=== PATIENT | female | born 1980 | race Caucasian/White ===

== ENCOUNTER → 2017-04-12 09:52 | Outpatient (CLI) | payer BC, SELFPAY ==
[2017-04-12 11:54] LABS: Alanine Aminotransferase 38 U/L (12-78); Albumin Level 3.8 gm/dL (3.4-5.0); Alkaline Phosphatase 94 U/L (46-116); Anion Gap 13.9 mEq/L (5-15); Aspartate Amino Transferase 19 U/L (15-37); Bilirubin,Total 0.4 mg/dL (0.2-1.0); Blood Urea Nitrogen 15 mg/dL (7-18); Calcium 8.9 mg/dL (8.5-10.1); Carbon Dioxide 29 mmol/L (21.0-32.0); Chloride 103 mmol/L (98-107); Chol/HDL Ratio 3.2 (1-3.5); Cholesterol 145 mg/dL (140-200); Creatinine,Serum 0.62 mg/dL (0.55-1.02); Estimated Glomerular Filt Rate 110 ml/min (>60); GFR (African American) 133 ML/MIN (>60); Globulin 3.7 gm/dl (1.3-3.2); Glucose 100 mg/dL (74-106); HDL Cholesterol 46 mg/dL (29-89); LDL Cholesterol 64 mg/dL (0-130); Potassium 3.9 mmoL/L (3.5-5.1); Sodium 142 mmol/L (136-145); Total Protein,Serum 7.5 gm/dL (6.4-8.2); Triglycerides 173 mg/dL (30-200); VLDL Cholesterol 35 mg/dL (0-40)
[2017-04-13 08:26] LABS: HIV Screen 4th Generation wRfx Non Reactive (Non Reactive); Hep A Ab, IgM Negative (Negative); Hepatitis B Core Antibody IgM Negative (Negative); Hepatitis B Surface Antigen Negative (Negative)
[2017-04-13 12:15] LABS: Hepatitis C Antibody <0.1 s/co ratio (0.0-0.9); Rapid Plasma Reagin Ab Titer Non Reactive (NonRea<1:1)
== END ==
PROVIDERS: PCP Internal Medicine Adolescent Medicine; Visit Provider Nurse Practitioner Family
DX: Z00.00 Encounter for general adult medical examination without abnormal findings (principal); I10 Essential (primary) hypertension; Z20.2 Contact with and (suspected) exposure to infections with a predominantly sexual mode of transmission
CPT/HCPCS: 36415; 80053; 80061; 80074; 86592; 86703; G0432

== ENCOUNTER 2023-09-30 08:54 | Emergency (ER) | payer OTHER, SELFPAY ==
[2023-09-30 08:56] VITALS: BP 156/100; PULSE 61; RESP 19; TEMP 36.6; O2SAT 99; BMI 39.1
--- NOTE | 2023-09-30 09:02 | ED_ITS ---
Discharge Plan Disposition Patient Disposition: Home, Self-Care Chief Complaint: Fall Prescriptions Prescriptions: No Action spironolactone 50 mg tablet PO Patient Comments: TAKE 1 TABLET BY MOUTH ONCE DAILY bumetanide 2 mg tablet PO Patient Comments: TAKE 1 TABLET BY MOUTH ONCE DAILY metoprolol succinate 100 mg tablet extended release 24 hr PO BID Patient Comments: TAKE 1 TABLET BY MOUTH 2 TIMES A DAY DO NOT CRUSH OR CHEW Entresto 24-26 mg tablet PO .2 tabs bid Patient Comments: TAKE 1 TABLET BY MOUTH TWICE DAILY dapagliflozin propanediol [Farxiga] 10 mg tablet 10 mg PO DAILY Qty: 90 0RF dapagliflozin propanediol [Farxiga] 10 mg tablet 10 mg PO DAILY Qty: 90 0RF Referrals Follow up/Referrals: Kindra Persaud PA [Primary Care Provider] - See instructions Activity Restrictions/Add. Instructions Additional Instructions/Restrictions: You have been evaluated in the ED for your complaints. You may follow-up with your PCP in the next 3 to 5 days. Please return to ED for any new or worsening symptoms. 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 Clinical Impressions Clinical Impression: ICD (implantable cardioverter-defibrillator) in place Print Language Print Language: [place] Discharge ED Provider: Regis Ray Adult HPI General Chief complaint: Fall Stated complaint: ao 09/29, device check Time Seen by Provider: 09/30/23 08:59 History of Present Illness HPI narrative: 43-year-old female with past medical history significant for hypertension, cerebral palsy, CKD, CHF, has ICD in place, presents today for evaluation concerning fall that occurred this morning. Patient states that she fell from her bed onto her left side and feels as if her ICD has moved out of place. She denies having any pain or symptoms at this time. Denies any chest pain, maria guadalupe rtness of breath, nausea or vomiting, headaches, neck pain, back pain, abdominal pain or any other associated symptoms. ICD is managed in [facility] Related Data Gatzke Medications ?Medication ?Instructions ?Recorded ?Confirmed bumetanide 2 mg tablet mg PO 09/10/23 09/10/23 metoprolol succinate 100 mg mg PO BID 09/10/23 09/10/23 tablet,extended release 24 hr sacubitril 24 mg-valsartan 26 mg tab PO .2 tabs bid 09/10/23 09/10/23 tablet (Entresto) spironolactone 50 mg tablet mg PO 09/10/23 09/10/23 Previous Rx's ?Medication ?Instructions ?Recorded Farxiga 10 mg tablet 10 mg PO DAILY #90 tabs 09/10/23 (dapagliflozin propanediol) dapagliflozin propanediol 10 mg 10 mg PO DAILY #90 tabs 09/10/23 tablet (Farxiga) Allergies Allergy/AdvReac Type Severity Reaction Status Date / Time No Known Allergies Allergy Verified 09/10/23 14:03 [facility] Disclaimer: The information contained in this section may have been updated after the patient was seen, as this information can be updated by other users. Medical History (Updated 09/30/23 @ 11:17 by Regis Ray DO) CHF (congestive heart failure) Cerebral palsy Hypertension ICD (implantable cardioverter-defibrillator) in place Surgical History (Updated 09/10/23 @ 14:18 by Ashley Graham MA) H/O bone graft Hx of cholecystectomy H/O: Family History (Updated 09/10/23 @ 14:12 by Ashley Graham MA) Other Cancer Diabetes Heart attack Hypertension Stroke Social History (Updated 09/10/23 @ 14:11 by Ashley Graham MA) Smoking Status: Current some day smoker tobacco type: cigarettes packs per day: 1 alcohol intake: never substance use type: denies use current occupational status: unemployed and other Travel in the last 8 weeks: None household members: family housing: house marital status: education level: college ROS Obtained: Yes All systems reviewed & no additional complaints except as documented Physical Exam General General appearance: alert and in no apparent distress Head Head exam: atraumatic and normocephalic Eye Eye exam: Present normal appearance, PERRL and EOMI ENT ENT exam: Present normal oropharynx and mucous membranes moist Neck Neck exam: Present full ROM; Absent meningismus Chest Chest inspection: Present other (ICD is palpated in the left chest. Surgical incision scar is well-appearing. No external signs of trauma.) Respiratory Respiratory exam: Absent respiratory distress, wheezes, stridor or accessory muscle use Cardiovascular Cardiovascular exam: Present normal rhythm Abdominal Exam Abdominal exam: Present soft; Absent distention, tenderness, guarding, rebound or rigidity Neurological Exam Neurological exam: Present alert, oriented X3 and CN II-XII intact; Absent motor sensory deficit Psychiatric Psychiatric exam: Present normal affect and normal mood Skin Skin exam: Present warm and dry Medical Decision Making Medical Records Medical records reviewed: Yes I reviewed the patient's medical records. Stevan Inquiry Pt receiving controlled substance: No Stevan was queried for this patient: No Vital Signs: 09/30/23 08:56 Temperature 97.9 F Temperature Source Oral Pulse Rate [Left Radial] 61 Respiratory Rate 19 Blood Pressure [Right Arm] 156/100 H Blood Pressure Mean [Right Arm] 118 02 Sat by Pulse Oximetry 99 Oxygen Delivery Method Room Air Orders (Tests/Meds): ORDERS Category Date Time Status CXR --portable [XR chest portable] Stat Exams 09/30/23 09:03 Completed Medical Decision Narrative: 43-year-old female with past medical history significant for hypertension, cerebral palsy, CKD, CHF, has ICD in place, presents today for evaluation concerning fall that occurred this morning. Patient states that she fell from h er bed onto her left side and feels as if her ICD has moved out of place. She denies having any pain or symptoms at this time. On assessment the patient was hemodynamically stable and in no acute distress. Afebrile. Chest clear to auscultation bilaterally abdomen soft nondistended and nontender to palpation. ICD is palpable on the left chest. There is an incisional scar that is well-appearing. No external signs of trauma. Differential diagnoses include but limited to ICD displacement, among others. Chest x-ray was ordered and showed no acute findings. ICD was noted to be in satisfactory position. On reassessment she remained hemodynamically stable and in no acute distress. Discussed ED workup and results. Did attempt to interrogate pacemaker to ensure that it was functioning properly however we do not have capabilities here. 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 Sure decision-making discussion was had and she stated that she would make appropriate follow-up. I provided her with strict return ED precautions. She verbalized understanding and agreement. Subsequently discharged. Critical Care Critical Care Time Critical Care Time: No
--- NOTE | 2023-09-30 09:03 | XR_ITS ---
PROCEDURE INFORMATION: Exam: XR Chest Exam date and time: 09/30/2023 9:06 AM Age: 43 years old Clinical indication: Injury or trauma; Fall; Blunt trauma (contusions or hematomas); Prior surgery; Surgery date: 1-6 months; Surgery type: Icd revision done 1 month ago, originally placed icd 1 year ago; Additional info: Feels like icd is out of place after falling out of bed this morning TECHNIQUE: Imaging protocol: Radiologic exam of the chest. Views: 1 view. COMPARISON: No relevant prior studies available. FINDINGS: Tubes, catheters and devices: Implanted cardiac device in satisfactory position. Lungs: Unremarkable. No consolidation. Pleural spaces: Unremarkable. No pleural effusion. No pneumothorax. Heart/Mediastinum: Cardiomegaly. Bones/joints: Unremarkable. IMPRESSION: No acute findings.
--- OUTSIDE RECORDS SUMMARY | 2023-09-30 09:04 | XMS_ITS | Continuity of Care Document ---
Author Organization [facility] Address [address] [place] [address]- Care Team Providers Care Assistant Sales Manager Name Role Phone KELLIE, UNKNOWN Primary Care Physician Unavailab le Encounter [facility] [id number] Date(s): 08/02/23 - 08/24/23 [facility] [address] [place] [address]- [place] Discharge Disposition: OP Self Care or Home Attending Physician: NEGRITA BOWERS MD-CAR Admitting Physician: NEGRITA BOWERS MD-CAR Referring Physician: DEBO HOPKINS Allergies, Adverse Reactions, Alerts No Known Allergies Assessment and Plan Future Scheduled Tests Radiology* CR Chest 2 Vws 06/12/23 Medications bumetanide 2 mg oral tablet 2 mg 1 Tab, Oral, Tab, Daily, # 90 Tab, 0 Refill(s) Start Date: 08/24/23 Status: Ordered Entresto 49 mg-51 mg oral tablet 2 Tab, Oral, Tab, BID, # 60 Tab, 0 Refill(s) Start Date: 10/03/22 Status: Ordered Farxiga 10 mg oral tablet 10 mg 1 Tab, Oral, Daily, 0 Refill(s) Start Date: 10/03/22 Status: Ordered Metoprolol Succinate ER 50 mg oral tablet, extended release 50 mg 1 Tab, Oral, XL Tab, BID, Tab, 0 Refill(s) Start Date: 10/03/22 Status: Ordered spironolactone 50 mg oral tablet 50 mg 1 Tab, Oral, Tab, Daily, # 30 Tab, 0 Refill(s) Start Date: 10/03/22 Status: Ordered Mental Status 08/24/23 Level of Consciousness Alert, Awake Orientation Oriented x 4 Affect/Behavior Appropriate, Calm, Cooperative Facial Symmetry Symmetric Problem List Condition Confirmation Course Effective Dates Status H ealth Status Informant Cardiomyopathy Confirmed Active Cerebral palsy 1 Confirmed Active Chronic bronchitis Confirmed Active pat ient CHF (congestive heart failure) Confirmed Active Diabetes Confirmed Active HLD (hyperlipidemia) Confirmed Active HTN (hypertension) Confirmed Active Seizure 2 Confirmed Active patient 1L sided weakness 2childhood only, not treated Procedures Procedure Date Related Diagnosis Body Site Status CL Eval ICD Gen at Implant SN 1 08/24/23 Completed CL ICD Lead Removal SN 2 08/24/23 Completed CL Eval ICD Gen at Implant SN 3 10/06/22 Completed CL ICD Implant Dual SN 4 10/06/22 Completed Right foot, ORIF 2017 Complete d Cholecystectomy. laparoscopic 2011 Completed Abdmoninal mass, endometriosis 2010 Completed C Section 2005 Completed Tubal ligation 2005 Completed C Section 2004 Completed C Section 2002 Completed Left hip, bone removed 5 Completed 1auto-populated from documented surgical case 2auto-populated from documented surgical case 3auto-populated from documented surgical case 4auto-populated from documented surgical case 5Unknown date Results Laboratory List Name Date BMP Basic Metabolic Panel 08/24/23 CBC w/ Auto Diff 08/24/23 PT/INR Prothrombin Time 08/24/23 PTT 08/24/23 .Automated Differential 08/24/23 Most recent to oldest [Reference Range]: 1 eGFR [>=60 mL/min/1.73m2] 112 mL/min/1.7 3m2 1 (08/24/23 10:44 AM) Sodium Level [136-145 mmol/L] 138 mmol/L (08/24/23 10:44 AM) Potassium Level [3.5-5.1 mmol/L] 3.6 mmo l/L (08/24/23 10:44 AM) Chloride Level [98-110 mmol/L] 104 mmol/ L (08/24/23 10:44 AM) Carbon Dioxide Level [21.0-31.0 mmol/L] 26.0 mmol/L (08/24/23 10:44 AM) Anion Gap [2.0-11.0] 8.0 (08/24/23 10:44 AM) WBC [4.0-10.8 x10(3)/uL] 7.0 x10(3)/uL (08/24/23 10:44 AM) RBC [3.77-5.16 x10(6)/uL] 4.88 x10(6)/uL (08/24/23 10:44 AM) Hct [35.0-45.0 %] 42.9 % (08/24/23 10:44 AM) Hgb [12.0-16.0 Gram/dL] 14.7 Gram/dL (08/24/23 10:44 AM) Platelet Count [140-420 x10(3)/uL] 287 x 10(3)/uL (08/24/23 10:44 AM) MCH [25.6-32.2 pg] 30.1 pg (08/24/23 10:44 AM) MCHC [32.3-36.5 Gram/dL] 34.3 Gram/dL (08/24/23 10:44 AM) MCV [79.4-94.8 fL] 87.9 fL (08/24/23 10:44 AM) Bun/Creatinine [6.0-22.0] 11.9 (08/24/23 10:44 AM) Calcium Level [8.6-10.2 mg/dL] 9.1 mg/dL (08/24/23 10:44 AM) Glucose Level [74-109 mg/dL] 104 mg/dL (08/24/23 10:44 AM) Blood Urea Nitrogen [7-25 mg/dL] 8 mg/dL (08/24/23 10:44 AM) INR 1.00 2 *NA* (08/24/23 10:44 AM) Slide Review None *NA* (08/24/23 10:44 AM) Eos % [0.0-7.0 %] 4.0 % (08/24/23 10:44 AM) Reynolds # [0.0-1.0 x10(3)/uL] 0.5 x10(3)/uL (08/24/23 10:44 AM) Eos # [0.0-0.7 x10(3)/uL] 0.3 x10(3)/uL (08/24/23 10:44 AM) Reynolds % [2.0-12.0 %] 7.1 % (08/24/23 10:44 AM) Baso % [0.0-3.0 %] 1.0 % (08/24/23 10:44 AM) PTT [24.6-34.4 Second(s)] 35.3 Second(s) 3 *HI* (08/24/23 10:44 AM) Baso # [0.0-0.3 x10(3)/uL] 0.1 x10(3)/uL (08/24/23 10:44 AM) RDW [11.0-15.5 %] 14.1 % (08/24/23 10:44 AM) Neut % [34.0-75.0 %] 63.1 % (08/24/23 10:44 AM) PT [9.7-13.1 Second(s)] 11.5 Second(s) (08/24/23 10:44 AM) Neut # [1.5-7.1 x10(3)/uL] 4.4 x10(3)/uL (08/24/23 10:44 AM) Lymph % [17.0-53.0 %] 24.8 % (08/24/23 10:44 AM) Lymph # [1.0-3.5 x10(3)/uL] 1.7 x10(3)/u L (08/24/23 10:44 AM) MPV [8.7-12.0 fL] 9.1 fL (08/24/23 10:44 AM) Creatinine Level [0.60-1.20 mg/dL] 0.67 mg/dL (08/24/23 10:44 AM) Lot Number [id number] (08/24/23 2:54 PM) 1Interpretive Data: eGFR calculation performed using the CKD-EPI 2020 equation (race variable excluded) 2Interpretive Data: Recommended INR range for Oral Anticoagulant Therapy : STANDARD: 2.0 - 3.0 HIGH: 3.0 - 4.5 NOTE: Recommended range will be different for patients with mechanical implants. 3Interpretive Data: Heparin therapeutic range is 55-95 sec. When the PTT is> 95 sec, if on heparin, refer to heparin protocol. If not on heparin, recommend appropriate workup. Vital Signs Most recent to oldest [Reference Range]: 1 2 3 4 Pope Motor Response Obey commands (08/24/23 3:45 PM) Obey commands (08/24/23 1:31 PM) Long Verbal Response Oriented (08/24/23 3:45 PM) Oriented (08/24/23 1:31 PM) Long Eye Opening Response Spontaneous (08/24/23 3:45 PM) Spontaneous (08/24/23 1:31 PM) Long Coma Score 15 (08/24/23 3:45 PM) 15 (08/24/23 1:31 PM) Temperature Source Tympanic (08/24/23 1:31 PM) Temperature, Fahrenheit [96.8-99.7 Deg F] 98.3 Deg F (08/24/23 1:31 PM) Clinical Temperature, C 36.8 Deg C (08/24/23 1:31 PM) Heart Rate, Apical [60-100 bpm] 65 bpm (08/24/23 1:31 PM) Heart Rate Monitored [60-100 bpm] 69 bpm (08/24/23 4:45 PM) 64 bpm (08/24/23 4:30 PM) 60 bpm (08/24/23 4:15 PM) Respiratory Rate [14-20 Breaths/Min] 15 Breaths/Min (08/24/23 4:45 PM) 16 Breaths/Min (08/24/23 4:30 PM) 16 Breaths/Min (08/24/23 4:15 PM) Blood Pressure Location Arm, right upper (08/24/23 1:31 PM) Blood Pressure Source Non-Invasive BP Device (08/24/23 1: PM) Blood Pressure Position Supine (08/24/23 1:31 PM) Blood Pressure [90-140/60-90 mmHg] 175/104mmHg *HI* (08/24/23 4:45 PM) 175/104mmHg *HI* (08/24/23 4:30 PM) 179/105mmHg *HI* (08/24/23 4:15 PM) Mean Arterial Pressure (MAP)-BMDI 124 (08/24/23 4:45 PM) 124 (08/24/23 4:30 PM) 126 (08/24/23 4:15 PM) Oxygen Saturation [94-100 %] 100 % (08/24/23 5:00 PM) 100 % (08/24/23 4:45 PM) 99 % (08/24/23 4:30 PM) Oxygen Therapy Mode Room air (08/24/23 4:45 PM) Room air (08/24/23 3:45 PM) Room air (08/24/23 1:31 PM) Room air (08/24/23 1:31 PM) Height Source Stated (08/24/23 1:31 PM) Stated (08/24/23 1:12 PM) Height Entry Format [place] (08/24/23 1:31 PM) [place] (08/24/23 1:12 PM) Height/Length, [place] (ft) 5 ft (08/24/23 1:31 PM) 5 ft (08/24/23 1:12 PM) Height/Length [place]IZ[place] 6 Inch (08/24/23 1:31 PM) 6 Inch (08/24/23 1:12 PM) CLINICALHEIGHT 167.64 cm (08/24/23 1:31 PM) 167.64 cm (08/24/23 1:12 PM) Weight Source Standing scale (08/24/23 1:31 PM) Standing scale (08/24/23 1:12 PM) Weight Entry Format Pounds (08/24/23 1:31 PM) Pounds (08/24/23 1:12 PM) Weight [place] lb 267 lb (08/24/23 1:31 PM) 267 lb (08/24/23 1:12 PM) Weight [place] oz 0 oz (08/24/23 1:31 PM) 0 oz (08/24/23 1:12 PM) CLINICALWEIGHT 121.36 kg (08/24/23 1:31 PM) 121.36 kg (08/24/23 1:12 PM) Body Surface Area (BSA) 2.26 m2 (08/24/23 1:31 PM) 2.26 m2 (08/24/23 1:12 PM) Body Mass Index [19-24 kg/m2] 43.2 kg/m2 *>HHI* (08/24/23 1:31 PM) 43.2 kg/m2 *>HHI* (08/24/23 1:12 PM) Koppel Body Weight 59 kg (08/24/23 1:31 PM) 59 kg (08/24/23 1:12 PM) Social History Social History Type Response Smoking Status Former smoker; Month Tobacco Last Used quit 08/2022; entered on: 10/06/22 Sex Female Hospital Discharge Instructions Patient Education 08/24/2023 16:27:18 Cardioverter Defibrillator Implantation, Care After Cardioverter Defibrillator Implantation (ICD), Incision Care After The following information offers guidance on how to care for yourself after your procedure. Your health care provider may also give you more specific instructions. If you have problems or questions, contact your health care provider. What can I expect after the procedure? After the procedure, it is common to have: ??? Some pain. Pain may last a few days. ??? A slight bump over the skin where the device was placed. Sometimes, it is possible to feel the device under the skin. This is normal. During the months and years after your procedure, your health care provider will check the device, the wires (leads), and the battery every few months. The generator is monitored over time and will be replaced when the battery is depleted. Follow these instructions at home: Medicines ??? Take jaom-omk-kibqtpm and prescription medicines only as told by your health care provider. Bathing ??? Do not take baths, swim, or use a hot tubfor the next 4-6 weeks ??? You may shower after you are seen in [address] Bowers's Nurse Practioner. You may only be allowed to take sponge baths. Cover your incision with a watertight covering if you take a sponge bath. Incision care ??? Follow instructions from your health care provider about how to take care of your incision. Make sure you: ??? Wash your hands with soap and water for at least 20 seconds before and after you change your bandage (dressing). If soap and water are not available, use hand retail service lead merchandiser. ??? Do Not remove or change your dressing. The nurse practioner will remove your dressing. ??? Leave stitches (sutures), skin glue, adhesive strips, or meggan in place. These skin closures may need to stay in place for 2 weeks or longer. If adhesive strip edges start to loosen and curl up, you may trim the loose edges. Do not remove adhesive strips completely unless your health care provider tells you to do that. ??? Check your incision area every day for signs of infection. Check for: ??? Redness, swelling, or more pain. ??? Fluid or blood. ? ? Warmth or fever > 100.0 F ??? Pus or a bad smell. ??? Do not use lotions or ointments near the incision area unless told by your health care provider. ??? Do not wear tight clothes or clothes that could rub on your incision. Activity ??? Do not lift anything that is heavier than 10 lb (4.5 kg), or the limit that you are told, untilmethodist hospital health care provider says that it is safe. ??? Return to your normal activities as told by your health care provider. Follow instructions frommethodist hospital health care provider about sports, exercise, work, and sexual activity restrictions after yourprocedure. ??? Avoid sitting for a long time without moving. Get up to take short walks every 1???2 hours. This is important to improve blood flow and breathing. Ask for help if you feel weak or unsteady. ??? For at least 6 weeks: ??? You should use your shoulder on the side of the defibrillator in daily tasks that do not require a lot of motion. ??? Avoid sudden jerking, pulling, or chopping movements that pull your upper arm far away from your body. ??? Do not drive or operate machineryfor the next 48-72 hours. Electric and magnetic estrada ??? Tell all health care providers, including your dentist, that you have a defibrillator. Some medical devices and imaging methods such as MRI may affect your device. ??? If you must pass through a metal detector, quickly walk through it. Do not stop under the detector. Do not stand near it. ??? Avoid places or objects that have a strong electric or magnetic field, including: ??? Airport security rousseau. At the airport, let officials know that you have a defibrillator. Your defibrillator ID card will let you be checked in a way that is safe for you and will not damage yourdefibrillator. Do not let a security person wave a magnetic wand near your defibrillator. That can make it stop working. ??? Power plants. ??? Large electrical generators. ??? Anti-theft systems or electronic article surveillance (EAS). ??? Radiofrequency transmission towers, such as mobile phone and radio towers. ??? Some household devices and appliances may produce electromagnetic waves that affect your defibrillator. If you are not sure if something is safe to use, ask your health care provider. ??? When using your mobile phone, hold it to the ear that is on the opposite side from the defibrillator. Do not leave your mobile phone in a pocket over the defibrillator. ??? Many devices contain magnets. Examples include headphones and electronic cigarettes. Do not putthem in a pocket near your device. If they are wearable, wear them as far away from the device as possible. ??? Some devices are safe to use if they are held at least 12 inches (30 cm) away from your defibrillator. These include power tools, chain saws, lawn mowers, and speakers. ??? You may safely use electric blankets, heating pads, computers, and microwave ovens. ??? Do not use amateur or ham radio equipment, electric (arc) welding torches, magnetic mattresses or chairs, and body fat measuring scales. General instructions ??? Always keep your defibrillator ID card with you. The card should list the implant date, device model, and hospital nurse liaison. Consider wearing a medical alert bracelet or necklace. ??? Have your defibrillator checked as often as told by your health care provider. Most defibrillators last for 5???7 years. ??? Do not use any products that contain nicotine or tobacco. These products include cigarettes, chewing tobacco, and vaping devices, such as e-cigarettes. If you need help quitting, ask your health care provider. ??? Discuss specific device restrictions with your device hospital nurse liaison or health care provider. ??? Get screened for depression and anxiety, and seek treatment if needed. ??? Keep all follow-up visits. This is important. Contact a health care provider if: ??? You feel one shock in your chest. ??? You gain weight suddenly. ??? You have a fever. ??? You have swelling in your arm on the same side of your body as the device or have swelling in your legs or feet. ??? It feels like your heart is fluttering or skipping beats (heart palpitations). ??? You have any of these signs of infection around your incision: ??? Redness, swelling, or more pain. ??? Fluid or blood. ??? Warmth. ??? Pus or a bad smell. ??? You are feeling depressed, scared, anxious, or sad. Get help right away if: ??? You have chest pain. ??? You feel more than one shock. ??? You have problems breathing or have shortness of breath. ??? You have dizziness or fainting. ??? Your incision starts to open up. These symptoms may represent a serious problem that is an emergency. Do not wait to see if the symptoms will go away. Get medical help right away. Call your local emergency services (911 in the [place] Do not drive yourself to the hospital. Summary ??? It is important to follow your activity restrictions for at least 6 weeks following your deviceimplantation. Do not lift your upper arm above your shoulder. ??? Always keep your defibrillator ID card with you. The card should list the implant date, device model, and hospital nurse liaison. Consider wearing a medical alert bracelet or necklace. ??? Follow the device distance restrictions for electric and magnetic estrada. ??? Keep all follow-up visits with your health care provider for monitoring of your defibrillator. ??? Contact your health care provider if you have signs of an infection such as a fever or redness,swelling, or more pain around your incision. Get help right away if you have chest pain, receive more than one shock, or faint. This information is not intended to replace advice given to you by your health care provider. Make sure you discuss any questions you have with your health care provider. Document Revised: 08/11/2020 Document Reviewed: 08/11/2020 [employer] Patient Education ?? 2022 [employer]. Follow Up Care 08/02/2023 07:53:25 With:NEGRITA BOWERS MD-CAR Address: [address] [place] [phone] When:2 to 3 days Comments:Call on Sunday,??for follow up appointment with Dr. Bowers's??Nurse Practitioner for a 1 week incision check. With:NEGRITA BOWERS MD-CAR Address: [address] [place] [phone] When:2 to 4 weeks Comments:Call for follow up appointment on Sunday to see when ??Robinson??would like to see you Cardiology * Event Display: Cardiac Procedure EKG study * Event Display: EKG Preliminary Patient Care team information Care Team Personnel Name: PIETROElliott, UNKNOWN Position: [place] Referring Provider - No Access Member Role: Primary Care Physician Care Team Related Persons Name: PHIL DHILLON
--- OUTSIDE RECORDS SUMMARY | 2023-09-30 09:04 | XMS_ITS | Continuity of Care Document ---
Author Organization [facility] Address [address] [place] [address]- Care Team Providers Care Boat Hand Name Role Phone PHY, UNKNOWN Primary Care Physician Unavailab le Encounter [facility] Date(s): 09/27/22 - 10/03/22 [facility] [address] [place] [address]- [place] Discharge Disposition: OP Self Care or Home Allergies, Adverse Reactions, Alerts No Known Allergies Assessment and Plan Future Appointments Appointment Date:10/06/2022 07:00:00 AM Scheduled Provider: Location:[facility] Engine Maintenance Mechanic SN Appointment Type:[facility] Surgery Medications Entresto 49 mg-51 mg oral tablet 1 Tab, Oral, Tab, Daily, # 60 Tab, 0 Refill(s) Start Date: 10/03/22 Status: Ordered Farxiga 10 mg oral tablet See Instructions, Tab mg Oral Daily, 0 Refill(s) Start Date: 10/03/22 Status: Ordered Metoprolol Succinate ER 50 mg oral tablet, extended release 50 mg, Oral, XL Tab, BID, Tab, 0 Refill(s) Start Date: 10/03/22 Status: Ordered spironolactone 50 mg oral tablet 50 mg 1 Tab, Oral, Tab, Daily, # 30 Tab, 0 Refill(s) Start Date: 10/03/22 Status: Ordered Problem List Condition Confirmation Course Effective Dates Status H ealth Status Informant Cardiomyopathy Confirmed Active Cerebral palsy Confirmed Active CHF (congestive heart failure) Confirmed Active HTN (hypertension) Confirmed Active Procedures Procedure Date Related Diagnosis Body Site Status Right foot, ORIF 2018 Complete d Cholecystectomy. laparoscopic 2011 Completed Abdmoninal mass, endometriosis 2010 Completed C Section 2006 Completed C Section 2005 Completed C Section 2003 Completed Left hip, bone removed 1 Completed 1Unknown date Social History Social History Type Response Smoking Status Former smoker entered on: 10/03/22 Sex Female Patient Care team information Care Team Personnel Name: PHY, UNKNOWN Position: [place] Referring Provider - No Access Member Role: Primary Care Physician
--- OUTSIDE RECORDS SUMMARY | 2023-09-30 09:04 | XMS_ITS | Continuity of Care Document ---
Author Organization [facility] Address [address] [place] [address]- Care Team Providers Care Provisioning Analyst Name Role Phone PHY, UNKNOWN Primary Care Physician Unavailab le Encounter [facility] [id number] Date(s): 10/20/22 - 10/20/22 [facility] [address] [place] [address]- [place] Discharge Disposition: OP Self Care or Home Allergies, Adverse Reactions, Alerts No Known Allergies Medications Entresto 49 mg-51 mg oral tablet 1 Tab, Oral, Tab, BID, # 60 Tab, [...] ient CHF (congestive heart failure) Confirmed Active HTN (hypertension) Confirmed Active Seizure 2 Confirmed Active patient 1L sided weakness 2childhood only, not treated Procedures Procedure Date Related Diagnosis Body Site Status CL Eval ICD Gen at Implant SN 1 10/06/22 Completed CL ICD Implant Dual SN 2 10/06/22 Completed Right foot, ORIF 2017 Complete d Cholecystectomy. laparoscopic 2011 Completed Abdmoninal mass, endometriosis 2010 Completed C Section 2006 Completed Tubal ligation 2006 Completed C Section 2005 Completed C Section 2002 Completed Left hip, bone removed 3 Completed 1auto-populated from documented surgical case 2auto-populated from documented surgical case 3Unknown date Social History Social History Type Response Smoking Status Former smoker; Month Tobacco Last Used quit 08/2022; entered on: 10/06/22 Sex Female Patient Care team information Care Team Personnel Name: KELLIE, UNKNOWN Position: [place] Referring Provider - No Access Member Role: Primary Care Physician Care Team Related Persons Name: PHIL DHILLON
--- OUTSIDE RECORDS SUMMARY | 2023-09-30 09:04 | XMS_ITS | Continuity of Care Document ---
Author Organization [facility] Address [address] [place] [address]- Care Team Providers Care Pipelines Supervisor Name Role Phone NO, FAMILY (REF) Primary Care Physician Unavaila ble Encounter [facility] [id number] Date(s): 09/27/22 - 10/06/22 [facility] [address] [place] [address]- [place] Discharge Disposition: OP Self Care or Home Attending Physician: LEESA HORTA MD-CAR Admitting Physician: LEESA HORTA MD-CAR Referring Physician: LEESA HORTA MD-CAR Allergies, Adverse Reactions, Alerts No Known Allergies Medications Entresto 49 mg-51 mg oral tablet 1 Tab, Oral, Tab, BID, # 60 Tab, 0 Refill(s) Start Date: 10/03/22 Status: Ordered Farxiga 10 mg oral tablet 10 mg 1 Tab, Oral, Daily, 0 Refill(s) Start Date: 10/03/22 Status: Ordered hydrALAZINE 5 mg, IV Push, Inj, Start 10/06/22 7:35:00 AM EDT, 10/06/22 7:20:00 EDT Start Date: 10/06/22 Stop Date: 10/06/22 Status: Completed labetalol 10 mg, IV Push, Inj, 1-Time, Routine, Start 10/06/22 9:00:00 AM EDT, Stop 10/06/22 8:08:40 AM EDT, 10/06/22 8:06:00 EDT Notes: (Refer to facility policy for care-area specific administration guidelines.) *High Alert Med* Start Date: 10/06/22 Stop Date: 10/06/22 Status: Completed metoprolol extended release 50 mg, Oral, XL Tab, 1-Time, NOW, Start 10/06/22 9:29:00 AM EDT, Stop 10/06/22 11:13:35 AM EDT, 10/06/22 9:29:00 EDT Notes: Do not crush or chew. Sustained release action. Start Date: 10/06/22 Stop Date: 10/06/22 Status: Completed Metoprolol Succinate ER 50 mg oral tablet, extended release 50 mg 1 Tab, Oral, XL Tab, BID, Tab, 0 Refill(s) Start Date: 10/03/22 Status: Ordered spironolactone 50 mg oral tablet 50 mg 1 Tab, Oral, Tab, Daily, # 30 Tab, 0 Refill(s) Start Date: 10/03/22 Status: Ordered Mental Status 10/06/22 Level of Consciousness Alert, Awake Orientation Oriented x 4 Pupils Equal, Round, Reactive to Light Y es Affect/Behavior Appropriate, Calm, Cooperative Facial Symmetry Symmetric Tongue Protrusion Midline Problem List Condition Confirmation Course Effective Dates [...] Completed Tubal ligation 2006 Completed C Section 2004 Completed C Section 2002 Completed Left hip, bone removed 3 Completed 1auto-populated from documented surgical case 2auto-populated from documented surgical case 3Unknown date Results Laboratory List Name Date BMP Basic Metabolic Panel 10/06/22 CBC w/ Auto Diff 10/06/22 PT/INR Prothrombin Time 10/06/22 PTT 10/06/22 .Automated Differential 10/06/22 Most recent to oldest [Reference Range]: 1 eGFR [>=60 mL/min/1.73m2] 101 mL/min/1.7 3m2 1 (10/06/22 5:57 AM) Sodium Level [136-145 mmol/L] 137 mmol/L (10/06/22 5:57 AM) Potassium Level [3.5-5.1 mmol/L] 3.8 mmo l/L (10/06/22 5:57 AM) Chloride Level [98-110 mmol/L] 105 mmol/ L (10/06/22 5:57 AM) Carbon Dioxide Level [21.0-31.0 mmol/L] 25.0 mmol/L (10/06/22 5:57 AM) Anion Gap [2.0-11.0] 7.0 (10/06/22 5:57 AM) WBC [4.0-10.8 x10(3)/uL] 8.8 x10(3)/uL (10/06/22 5:57 AM) RBC [3.77-5.16 x10(6)/uL] 5.22 x10(6)/uL *HI* (10/06/22 5:57 AM) Hct [35.0-45.0 %] 45.6 % *HI* (10/06/22 5:57 AM) Hgb [12.0-16.0 Gram/dL] 15.6 Gram/dL (10/06/22 5:57 AM) Platelet Count [140-420 x10(3)/uL] 320 x 10(3)/uL (10/06/22 5:57 AM) MCH [25.6-32.2 pg] 29.9 pg (10/06/22 5:57 AM) MCHC [32.3-36.5 Gram/dL] 34.2 Gram/dL (10/06/22 5:57 AM) MCV [79.4-94.8 fL] 87.4 fL (10/06/22 5:57 AM) Bun/Creatinine [6.0-22.0] 17.1 (10/06/22 5:57 AM) Calcium Level [8.6-10.2 mg/dL] 9.3 mg/dL (10/06/22 5:57 AM) Glucose Level [74-109 mg/dL] 116 mg/dL *HI* (10/06/22 5:57 AM) Blood Urea Nitrogen [7-25 mg/dL] 13 mg/d L (10/06/22 5:57 AM) INR 0.98 *NA* (10/06/22 5:57 AM) Slide Review None *NA* (10/06/22 5:57 AM) Eos % [0.0-7.0 %] 3.3 % (10/06/22 5:57 AM) [place] # [0.0-1.0 x10(3)/uL] 0.6 x10(3)/uL (10/06/22 5:57 AM) Eos # [0.0-0.7 x10(3)/uL] 0.3 x10(3)/uL (10/06/22 5:57 AM) [place] % [2.0-12.0 %] 6.7 % (10/06/22 5:57 AM) Baso % [0.0-3.0 %] 1.0 % (10/06/22 5:57 AM) PTT [24.6-34.4 Second(s)] 35.0 Second(s) *HI* (10/06/22 5:57 AM) Baso # [0.0-0.3 x10(3)/uL] 0.1 x10(3)/uL (10/06/22 5:57 AM) RDW [11.0-15.5 %] 14.6 % (10/06/22 5:57 AM) Neut % [34.0-75.0 %] 64.1 % (10/06/22 5:57 AM) PT [9.7-13.1 Second(s)] 11.4 Second(s) (10/06/22 5:57 AM) Neut # [1.5-7.1 x10(3)/uL] 5.7 x10(3)/uL (10/06/22 5:57 AM) Lymph % [17.0-53.0 %] 24.9 % (10/06/22 5:57 AM) Lymph # [1.0-3.5 x10(3)/uL] 2.2 x10(3)/u L (10/06/22 5:57 AM) MPV [8.7-12.0 fL] 9.1 fL (10/06/22 5:57 AM) Creatinine Level [0.60-1.20 mg/dL] 0.76 mg/dL (10/06/22 5:57 AM) 1Interpretive Data: eGFR calculation performed using the CKD-EPI 2020 equation (race variable excluded) Vital Signs Most recent to oldest [Reference Range]: 1 2 3 Long Motor Response Obey commands (10/06/22 10:15 AM) Obey commands (10/06/22 6:04 AM) Weed Verbal Response Oriented (10/06/22 10:15 AM) Oriented (10/06/22 6:04 AM) Long Eye Opening Response Spontaneous (10/06/22 10:15 AM) Spontaneous (10/06/22 6:04 AM) Weed Coma Score 15 (10/06/22 10:15 AM) 15 (10/06/22 6:04 AM) Temperature Source Tympanic (10/06/22 10:20 AM) Temporal artery scanning (10/06/22 6:04 AM) Temperature Mode Fahrenheit (10/06/22 10:20 AM) Fahrenheit (10/06/22 6:04 AM) Temperature, Fahrenheit [96.8-99.7 Deg F] 97.3 Deg F (10/06/22 10:20 AM) 97.0 Deg F (10/06/22 6:04 AM) Clinical Temperature, C 36.1 Deg C (10/06/22 6:04 AM) Heart Rate, Apical [60-100 bpm] 63 bpm (10/06/22 11:13 AM) 66 bpm (10/06/22 8:08 AM) 89 bpm (10/06/22 7:40 AM) Peripheral Pulse Rate [60-100 bpm] 71 bpm (10/06/22 12:30 PM) 68 bpm (10/06/22 12:00 PM) 70 bpm (10/06/22 11:45 AM) Heart Rate Monitored [60-100 bpm] 69 bpm (10/06/22 12:30 PM) 67 bpm (10/06/22 12:00 PM) 73 bpm (10/06/22 11:45 AM) Respiratory Rate [14-20 Breaths/Min] 20 Breaths/Min (10/06/22 12:30 PM) 17 Breaths/Min (10/06/22 12:00 PM) 15 Breaths/Min (10/06/22 11:45 AM) Blood Pressure Source Non-Invasive BP De vice (10/06/22 6:04 AM) Blood Pressure [90-140/60-90 mmHg] 164/100mmHg *HI* (10/06/22 12:30 PM) 130/90mmHg (10/06/22 12:00 PM) 130/90mmHg (10/06/22 11:45 AM) Mean Arterial Pressure (MAP)-BMDI 118 (10/06/22 12:30 PM) 102 (10/06/22 12:00 PM) 102 (10/06/22 11:45 AM) Oxygen Saturation [94-100 %] 95 % (10/06/22 12:30 PM) 98 % (10/06/22 12:00 PM) 91 % *LOW* (10/06/22 11:45 AM) Oxygen Therapy Mode Room air (10/06/22 12:00 PM) Room air (10/06/22 11:45 AM) Room air (10/06/22 11:30 AM) Oxygen Flow Rate 2 Liter/Min (10/06/22 10:32 AM) 4 Liter/Min (10/06/22 10:30 AM) 15 Liter/Min (10/06/22 10:25 AM) End Tidal CO2 [35-45 mmHg] 29 mmHg *LOW* (10/06/22 11:00 AM) 29 mmHg *LOW* (10/06/22 10:45 AM) Height Source Stated (10/06/22 6:04 AM) Stated (10/03/22 1:41 PM) Height Entry Format Richardson (10/06/22 6:04 AM) Richardson (10/03/22 1:41 PM) Height/Length, BHUTANESE (ft) 5 ft (10/06/22 6:04 AM) 5 ft (10/03/22 1:41 PM) Height/Length BHUTANESE 7 Inch (10/06/22 6:04 AM) 7 Inch (10/03/22 1:41 PM) CLINICALHEIGHT 170.18 cm (10/06/22 6:04 AM) 170.18 cm (10/03/22 1:41 PM) Weight Source Standing scale (10/06/22 6:04 AM) Stated (10/03/22 1:41 PM) Weight Entry Format Pounds (10/06/22 6:04 AM) Weight French lb 312 lb (10/06/22 6:04 AM) Weight French oz 6 oz (10/06/22 6:04 AM) CLINICALWEIGHT 141.99 kg (10/06/22 6:04 AM) Body Surface Area (BSA) 2.45 m2 (10/06/22 6:04 AM) Body Mass Index [19-24 kg/m2] 49 kg/m2 *>HHI* (10/06/22 6:04 AM) [place] Body Weight 61 kg (10/06/22 6:04 AM) 61 kg (10/03/22 1:41 PM) Social History Social History Type Response Smoking Status Former smoker; Month Tobacco Last Used quit 08/2022; entered on: 10/06/22 Sex Female Hospital Discharge Instructions Patient Education 10/06/2022 12:47:51 Cardioverter Defibrillator Implantation, Care After Cardioverter Defibrillator Implantation, Care After The following information offers guidance [...] these instructions at home: Medicines ??? Take qzyh-pko-gwztdwl and prescription medicines only as told by your health care provider. ??? If you were prescribed an antibiotic medicine, take it as told by your health care provider. Donot stop taking the antibiotic even if you start to feel better. Bathing ??? Do not take baths, swim, or use a hot tub until your health care provider approves. ??? Ask your health care provider when you may take showers. You may only be allowed to take spongebaths. Cover your incision with a watertight covering [...] and water are not available, use hand land classifier. ??? Change your dressing as told by your health care provider. ??? Leave stitches (sutures), skin glue, adhesive [...] or the limit that you are told, untilyour health care provider says that it is safe. ??? Return to your normal activities as told by your health care provider. Ask your health care provider what activities are safe for you. Follow instructions from your health care provider about sports, exercise, work, and sexual activity restrictions after your procedure. ??? Avoid sitting for a long time without moving. Get up to take short walks every 1???2 hours. This is important to improve blood flow and breathing. Ask for help if you feel weak or unsteady. ??? For at least 6 weeks: ??? Do not lift your upper arm above your shoulders. You may be given a sling to use. This means notennis, golf, or swimming for this period of time. ??? If you tend to sleep with your arm above your head, use a restraint, such as a sling, to prevent movement during sleep. ??? You should use your shoulder on the side of the defibrillator in daily tasks that do not require a lot of motion. ??? Avoid sudden jerking, pulling, or chopping movements that pull your upper arm far away from your body. ??? Do not drive or operate machinery until your health care provider says that it is safe. ??? Participate in a cardiac rehabilitation program as told by your health care provider. A cardiacrehabilitation program is a treatment program to improve your health and well-being through exercise training, education, and counseling. Electric and magnetic estrada ??? Tell all [...] list the implant date, device model, and retort furnace operator. Consider wearing a medical alert bracelet or [...] Discuss specific device restrictions with your device retort furnace operator or health care provider. ??? Get screened [...] list the implant date, device model, and retort furnace operator. Consider wearing a medical alert bracelet or [...] provider. Document Revised: 08/11/2020 Document Reviewed: 08/11/2020 [employer] Patient Education ?? 2022 [facility] Follow Up Care 09/27/2022 09:46:33 With:LEESA HORTA MD-CAR Address: [address] [place] [address]- When:1 week Comments:Office to call with appoint/instructions. Cardiology * Event Display: Cardiac Procedure EKG study * Event Display: EKG Preliminary Anesthesiology Note * NATALIIA RIOS MD-ANS: PERFORM, SIGN, VERIFY Event Display: Anesthesia Authored Date: Patient: RUDY REYES Age: 42 years Sex: Female : 1980 Associated Diagnoses: None Author: NATALIIA RIOS MD-ANS Postoperative Information Post Operative Info: Procedure/ Case: see intra-op note for procedure, diagnosis, and surgeon. Post operative day: Post Anesthesia Care Unit. Patient location: PACU. Notes: See nursing record for PACU signout time, No anesthetic complications. Assessment Postanesthesia assessment Vitals: Vitals assessed prior to DC. See flowsheet., Vitals Signs (last 24 hrs) Last Charted Minimum Maximum Temp 97.3 (OCT 06 10:20) 97.0 (OCT 06 06:04) 97.0 (OCT 06 06:04) Apical HR 63 (OCT 06 11:13) 63 (OCT 06 11:13) 92 (OCT 06 07:02) Mon HR 77 (OCT 06 10:30) 76 (OCT 06 10:25) 99 (OCT 06 07:00) Periph HR 91 (OCT 06 08:10) 77 (OCT 06 07:15) 96 (OCT 06 07:00) Resp Rate H 21 (OCT 06 10:30) 16 (OCT 06 06:04) H 31 (OCT 06 07:50) SBP 129 (OCT 06 10:30) 129 (OCT 06 10:30) H 227 (OCT 06 06:04) DBP 64 (OCT 06 10:30) 64 (OCT 06 10:30) H 151 (OCT 06 07:00) MAP 102 (OCT 06 10:25) 95 (OCT 06 10:15) 168 (OCT 06 07:00) SpO2 96 (OCT 06 10:30) L 93 (OCT 06 07:03) 98 (OCT 06 10:25) . Mental status: at preoperative baseline. Respiratory function. Respiratory support: oxygen room air. Cardiovascular function. Cardiovascular support: none. Pain: the quality is (dull, pressure), Postoperative pain control see nursing medication documentation, Pain assessed prior to DC. Plan in place.. Nausea status: denies nausea. Postoperative hydration status: within normal limits. Reviewed Vitals Review of Vital Signs: Personally reviewed patient's vitals prior to discharge see nursing documentation. Post Procedure Perioperative Events (If yes, proceed below): No. POST-PACU DISPOSITION / OUTCOME:: See nursing documentation for PACU sign out time. Electronically Signed 10/06/2022 11:21 ISAIAHT NATALIIA RIOS MD-ANS Patient Care team information Care Team Personnel Name: NO, FAMILY (REF), Position: PRO Referring Provider - No Access Member Role: Primary Care Physician Care Team Related Persons Name: JACQUIE PHIL
--- OUTSIDE RECORDS SUMMARY | 2023-09-30 09:04 | XMS_ITS | Continuity of Care Document ---
Author Organization [facility] Address [address] [place] [address]- Care Team Providers Care Associate Director Regulatory Affairs Name Role Phone PIETROY, UNKNOWN Primary Care Physician Unavailab le Encounter [facility] [id number] Date(s): 10/20/22 - 10/20/22 [facility] [address] [place] [address]- [place] Discharge Disposition: OP Self Care or Home Attending Physician: LEESA HORTA MD-CAR Admitting Physician: LEESA HORTA MD-CAR Referring Physician: DEBO HOPKINS Allergies, Adverse [...] SN 2 10/06/22 Completed Right foot, ORIF 2018 Complete d Cholecystectomy. laparoscopic 2011 Completed Abdmoninal mass, endometriosis 2010 Completed C Section 2006 Completed Tubal ligation 2005 Completed C Section 2004 Completed C Section 2002 Completed Left hip, bone removed 3 Completed 1auto-populated from documented surgical case 2auto-populated from documented surgical case 3Unknown date Results Radiology Reports * Exam Date Time Procedure Performing Provider Status 10/20/22 2:38 PM US Veins UE Duplex LTD LT NEHA VO, Fire Extinguisher Sprinkler Inspector; Auth (Verified) Notes: (US Veins UE Duplex LTD LT) Reason For Exam: pain in left arm;Other (Please Specify) REPORT ACCESSION NUMBER: [id number] DATE: 10/20/2022 14:38 EXAMINATION: US Veins UE Duplex LTD LT PROVIDED INDICATION: Left arm pain COMPARISON: None TECHNIQUE: Compression venous sonography of the left upper extremity veins was performed and includes color Doppler and spectral Doppler imaging. FINDINGS: Internal jugular vein: Patent without evidence of thrombus. Subclavian vein: Patent without evidence of thrombus. Axillary vein: Patent without evidence of thrombus. Brachial vein: Patent without evidence of thrombus. Basilic vein: Patent without evidence of thrombus. Cephalic vein: Patent without evidence of thrombus. IMPRESSION: No evidence of superficial or deep venous thrombosis in the imaged veins of the left upper extremity. I, the attending/teaching physician, have personally reviewed, discussed, and supervised this radiological examination with the resident and this report reflects my agreement. Dictated by: Edouard Singh MD Signed by Selene Mirza M.D. on 10/20/2022 15:07 Final Dictated by: EDOUARD SINGH MD-RAD Dictated DT/TM: 10/20/2022 3:07 pm Interpreted and electronically signed by: SELENE FAUSTIN MD-RAD Signed DT/TM: 10/20/2022 3:07 pm Social History Social History Type Response Smoking Status Former smoker; Month Tobacco Last Used quit 08/2022; entered on: 10/06/22 Sex Female Patient Care team information Care Team Personnel Name: KELLIE, UNKNOWN Position: [place] Referring Provider - No Access Member Role: Primary Care Physician Care Team Related Persons Name: PHIL DHILLON
--- OUTSIDE RECORDS SUMMARY | 2023-09-30 09:04 | XMS_ITS | Continuity of Care Document ---
Author Organization [facility] Address [address] [place] [address]- Care Team Providers Care Silver Wrapper Name Role Phone PHY, UNKNOWN Primary Care Physician Unavailab le Encounter [facility] [id number] Date(s): 07/17/23 - 07/17/23 [facility] [address] [place] [address]- [place] Discharge Disposition: OP Self Care or Home Attending Physician: NEGRITA HORTA MD-CAR Admitting Physician: NEGRITA HORTA MD-CAR Referring Physician: NEGRITA HORTA MD-CAR Allergies, Adverse Reactions, Alerts No Known Allergies Assessment and Plan Future Scheduled Tests Radiology* CR Chest 2 Vws 06/12/23 * CR Chest 2 Vws 07/17/23 Medications Entresto 49 mg-51 mg oral tablet [...] Exam Date Time Procedure Performing Provider Status 07/17/23 10:46 AM CR Chest 2 Vws NICOLE OCASIO, CERAMICS TEST ENGINEER; Auth (Verified) Notes: (CR Chest 2 Vws) Reason For Exam: cardiac lead placement REPORT INDICATION: Pacemaker lead placement COMPARISON: None. FINDINGS: PA and lateral views of the chest. Dual-chamber cardiac pacemaker is seen in the left chest. The atrial lead is at the location of thedistal left innominate vein. Ventricular lead is overlying the right ventricle. Heart and mediastinal contours are normal. The lungs are clear. No pneumothorax or pleural effusion. IMPRESSION: Atrial lead in the distal left innominate vein. Dictated by: Will Rayo M.D. Signed by Will Rayo M.D. on 07/17/2023 13:53 Final Dictated by: WILL RAYO MD-RAD Dictated DT/TM: 07/17/2023 1:53 pm Interpreted and electronically signed by: WILL RAYO MD-RAD Signed DT/TM: 07/17/2023 1:53 pm Social History Social History Type Response Smoking Status Former smoker; Month Tobacco Last Used quit 08/2022; entered on: 10/06/22 Sex Female Patient Care team information Care Team Personnel Name: PIETROY, UNKNOWN Position: [place] Referring Provider - No Access Member Role: Primary Care Physician Care Team Related Persons Name: PHIL DHILLON
--- NOTE | 2023-09-30 09:09 | PC.NURSE ---
RAD at [facility]
--- NOTE | 2023-09-30 09:15 | PC.NURSE ---
call made to Keith at [employer] [facility] Question and Emergency hotline [phone]. Keith reports that he is unable to help directly with the interrogation questions. Keith placed a call out to a MD to help with this issue.
--- NOTE | 2023-09-30 10:30 | PC.NURSE ---
call made again to [phone], to page for chief radiation therapist forestry patrolman for pacemaker interrogation. spoke with minnie this time.
[2023-09-30 11:22] VITALS: BP 170/92; PULSE 68; RESP 18; TEMP 36.6
== END 2023-09-30 11:23 | disposition home or self-care (01) ==
PROVIDERS: Emergency Provider Emergency Medicine; PCP Physician Assistant
DX: I11.0 Hypertensive heart disease with heart failure; I50.9 Heart failure, unspecified; N18.9 Chronic kidney disease, unspecified; G80.9 Cerebral palsy, unspecified; Z45.02 Encounter for adjustment and management of automatic implantable cardiac defibrillator
CPT/HCPCS: 71045; 99283

== ENCOUNTER 2024-03-21 00:16 | Emergency (ER) | payer OTHER, SELFPAY ==
[2024-03-21 00:17] VITALS: BP 180/98; PULSE 86; RESP 16; TEMP 36.6; O2SAT 98; BMI 45.1
--- NOTE | 2024-03-21 00:20 | XR_ITS ---
PROCEDURE INFORMATION: Exam: XR Right Forearm Exam date and time: 03/21/2024 12:26 AM Age: 43 years old Clinical indication: Injury or trauma; Other: Dog bite; Arm, lower; Right TECHNIQUE: Imaging protocol: Radiologic exam of the right forearm. Views: 2 views. COMPARISON: No relevant prior studies available. FINDINGS: Bones/joints: Normal. Soft tissues: Normal. IMPRESSION: No acute findings.
--- NOTE | 2024-03-21 00:20 | XR_ITS ---
PROCEDURE INFORMATION: Exam: XR Left Forearm Exam date and time: 03/21/2024 12:26 AM Age: 43 years old Clinical indication: Injury or trauma; Other: Dog bite; Arm, lower; Left TECHNIQUE: Imaging protocol: Radiologic exam of the left forearm. Views: 2 views. COMPARISON: No relevant prior studies available. FINDINGS: Bones/joints: Normal. Soft tissues: Normal. IMPRESSION: No acute findings.
[2024-03-21] MEDS: BACITRACIN ZINC OINT 30GM TUBE TP (00:41)
[2024-03-21] MEDS: AMOXICILLIN/CLAVULANATE POTASSIUM 875/125MG TABLET 1 EACH PO (00:41)
--- NOTE | 2024-03-21 00:47 | ED_ITS ---
Discharge Plan Disposition Patient Disposition: Home, Self-Care Condition: Good Prescriptions Prescriptions: New amoxicillin-pot clavulanate 875-125 mg tablet 1 tab PO BID Qty: 10 0RF bacitracin zinc 500 unit/gram ointment 1 applic topical BID Qty: 28 0RF No Action spironolactone 50 mg tablet PO Patient Comments: TAKE 1 TABLET BY MOUTH ONCE DAILY bumetanide 2 mg tablet PO Patient Comments: TAKE 1 TABLET BY MOUTH ONCE DAILY metoprolol succinate 100 mg tablet extended release 24 hr PO BID Patient Comments: TAKE 1 TABLET BY MOUTH 2 TIMES A DAY DO NOT CRUSH OR CHEW Entresto 24-26 mg tablet PO .2 tabs bid Patient Comments: TAKE 1 TABLET BY MOUTH TWICE DAILY dapagliflozin propanediol [Farxiga] 10 mg tablet 10 mg PO DAILY Qty: 90 0RF dapagliflozin propanediol [Farxiga] 10 mg tablet 10 mg PO DAILY Qty: 90 0RF venlafaxine [Effexor XR] 37.5 mg capsule,extended release 24hr 37.5 mg PO DAILY Qty: 30 2RF Ozempic 0.25 mg or 0.5 mg (2 mg/3 mL) pen injector 0.25 mg SQ WEEKLY Qty: 3 0RF Rx Instructions: for 4 weeks Referrals Follow up/Referrals: Provider,Referral, MD [Primary Care Provider] - See instructions Activity Restrictions/Add. Instructions Additional Instructions/Restrictions: You were evaluated in the ER and are appropriate for discharge at this time. Keep the wounds clean and dry. You can shower/bathe like normal. Use the prescribed bacitracin ointment twice daily on the wounds. Keep them loosely covered to allow them to drain. Take Tylenol or ibuprofen if needed for pain, do not exceed the recommended dose on the bottle. Drink water and eat a small snack each time you take these medications to avoid side effects. Take the prescribed Augmentin as directed, do not skip doses, do not stop taking it early. Return to the infusion clinic on 03/24, 03/28, and 04/04 for repeat rabies vaccines. If you have any problems with this, come to the ER and bring the order sheet we gave you. Have the suture removed in 7 to 10 days. Follow-up with your primary care doctor for reevaluation in a few days, return to the ER with any new, worsening, or otherwise concerning symptoms including but not limited to signs of infection. Clinical Impressions Clinical Impression: Dog bite Instructions Patient Instructions: Animal Bites Print Language Print Language: German Discharge ED Provider: Sarthak Rahman Adult HPI General Chief complaint: Animal Bite Stated complaint: Dog attack Time Seen by Provider: 03/21/24 00:20 Mode of Arrival: Ambulatory Source of Information: Patient Limitations: No Limitations Description of Symptoms (Recalled from ER Triage Doc. by RN): Two stray dogs attacked patients dog, and she broke up the fight. One of the strays bit her on left and right forearm, with a deeper, open lac on the right forearm. History of Present Illness HPI narrative: 43-year-old female with history of CHF presents to the ER with wounds on her bilateral forearms from dog bite. Patient reports 2 stray dogs attacked her dog and she broke up the fight. One of the strays bit her bilateral forearms leaving an elongated bite wound/laceration as well as a puncture wound on the right forearm as well as 2 small puncture wounds on the left forearm and a superficial linear wound on the back of the right wrist. Patient reports her last tetanus shot was 1 year ago when she had cardiac surgery. She has never had rabies vaccine or prophylaxis before. She does not know the status of the dog's vaccines, the dogs have been put down. She would prefer to proceed with postexposure prophylaxis and understands that she will require multiple more rabies vaccines. She states she has full range of motion of her arms, no numbness, tingling, or weakness in her hands, she has had slow bleeding from the wounds but nothing brisk or pulsatile. She reports no other injuries from the incident. Related Data Home Medications ?Medication ?Instructions ?Recorded ?Confirmed bumetanide 2 mg tablet mg PO 09/10/23 10/16/23 metoprolol succinate 100 mg mg PO BID 09/10/23 10/16/23 tablet,extended release 24 hr sacubitril 24 mg-valsartan 26 mg tab PO .2 tabs bid 09/10/23 10/16/23 tablet (Entresto) spironolactone 50 mg tablet mg PO 09/10/23 10/16/23 Previous Rx's ?Medication ?Instructions ?Recorded Farxiga 10 mg tablet 10 mg PO DAILY #90 tabs 09/10/23 (dapagliflozin propanediol) dapagliflozin propanediol 10 mg 10 mg PO DAILY #90 tabs 09/10/23 tablet (Farxiga) semaglutide 0.25 mg or 0.5 mg (2 0.25 mg (0.368 mL) SQ WEEKLY #3 mL 10/16/23 mg/3 mL) subcutaneous pen injector (Ozempic) venlafaxine 37.5 mg 37.5 mg PO DAILY #30 caps 10/16/23 capsule,extended release 24 hr (Effexor XR) amoxicillin 875 mg-potassium 1 tab PO BID #10 tabs 03/21/24 clavulanate 125 mg tablet bacitracin zinc 500 unit/gram 1 applic topical BID #28 grams 03/21/24 topical ointment Allergies Allergy/AdvReac Type Severity Reaction Status Date / Time No Known Allergies Allergy Verified 10/16/23 09:50 [facility] Disclaimer: The information contained in this section may have been updated after the patient was seen, as this information can be updated by other users. Medical History (Updated 03/21/24 @ 00:59 by Sarthak Rahman MD) CHF (congestive heart failure) Cerebral palsy Hypertension ICD (implantable cardioverter-defibrillator) in place Surgical History (Updated 09/10/23 @ 14:18 by Ashley Graham MA) H/O bone graft Hx of cholecystectomy H/O: Family History (Updated 09/10/23 @ 14:12 by Ashley Graham MA) Other Cancer Diabetes Heart attack Hypertension Stroke Social History (Updated 09/10/23 @ 14:11 by Ashley Graham MA) Smoking Status: Current every day smoker tobacco type: cigarettes packs per day: 1 alcohol intake: never substance use type: denies use current occupational status: unemployed and other Travel in the last 8 weeks: None household members: family housing: house marital status: education level: college ROS Obtained: Yes Systems reviewed as appropriate & no additional complaints except as documented Per HPI Physical Exam General General appearance: alert, in no apparent distress and obese Head Head exam: atraumatic and normocephalic Eye Eye exam: Present PERRL and EOMI ENT ENT exam: Present mucous membranes moist Neck Neck exam: Present normal inspection and full ROM Chest Chest inspection: Present symmetric chest wall rise Respiratory Respiratory exam: Absent respiratory distress or stridor Cardiovascular Cardiovascular exam: Present regular rate and normal rhythm Extremities Exam Extremities exam: Present full ROM, tenderness (Tenderness on the bilateral forearms in the areas of the bite wounds but there is no crepitus or deformity), normal capillary refill and other (2+ pulses distal to wounds); Absent joint swelling Neurological Exam Neurological exam: Present alert and oriented X3; Absent motor sensory deficit Psychiatric Psychiatric exam: Present normal affect and normal mood Skin Skin exam: Present warm and dry Expanded Skin Exam Type of lesion: Present laceration (2 cm bite laceration on the ulnar side of the palmar aspect of the right forearm, less than 1 cm puncture wound on the radial side of the palmar aspect of the right forearm, superficial linear laceration in the posterior aspect of the right wrist, 2 small puncture wounds on the palmar left forearm) and other (Wounds with slow venous oozing, neurovascularly intact distally) Medical Decision Making Medical Records Medical records reviewed: Yes I reviewed the patient's medical records. Screening: Per USPSTF and CDC recommendations, given the prevalence of disease in our region, it is our hospital?s policy to screen for HIV and viral Hepatitis for all patients aged 18 and over and those with ongoing risk factors. MR Comment: Review of note from Kindra Persaud on 10/16/2023 demonstrates patient followed up after an ER visit where she was concerned she had potentially compromised her recently implanted ICD. Plan at that time was to trial Effexor and GLP-1 if insurance would cover it Stevan Inquiry Pt receiving controlled substance: No Vital Signs: 03/21/24 00:17 03/21/24 01:19 Temperature 97.9 F 98.1 F Temperature Source Oral Oral Pulse Rate 84 Pulse Rate [Right Radial] 86 Respiratory Rate 16 16 Blood Pressure 180/98 H Blood Pressure [Right Arm] 180/98 H Blood Pressure Mean [Right Arm] 125 Blood Pressure Source Automatic Cuff Blood Pressure Source [Right Arm] Automatic Cuff Blood Pressure Position Sitting Blood Pressure Position [Right Arm] Supine 02 Sat by Pulse Oximetry 98 Oxygen Delivery Method Room Air Room Air Orders (Tests/Meds): ED MEDICATIONS Discontinued Medications Generic Name Dose Route Start Last Admin Trade Name Freq PRN Reason Stop Dose Admin Amoxicillin/Clavulanate Potassium 1 each 03/21/24 00:20 03/21/24 00:41 Amoxicillin/Clavulanate Potassium 875/125mg Tablet PO 03/21/24 00:21 1 each ONCE ONE Administration Bacitracin 1 gm 03/21/24 00:22 03/21/24 00:41 Bacitracin Zinc Oint 30gm Tube TP 03/21/24 00:23 1 gm ONCE ONE Administration Rabies Immune Globulin 2,540 unit 03/21/24 00:39 03/21/24 00:56 Rabies Immune Globulin/Pf 300 Unit/Ml Vial IM 03/21/24 00:40 2,540 unit ONCE ONE Administration Rabies Vaccine 2.5 unit 03/21/24 00:39 03/21/24 00:49 Rabies Vaccine (Pcec)/Pf 2.5 Unit Vial IM 03/21/24 00:40 2.5 unit .ONCE ONE Administration ORDERS Category Date Time Status Forearm XR left 2 views [XR forearm LT 2V] Stat Exams 03/21/24 00:20 Taken Forearm XR right 2 views [XR forearm RT 2V] Stat Exams 03/21/24 00:20 Taken Medical Decision Narrative: In summary, this 43-year-old female with comorbidities described in the HPI which increases her overall morbidity and the amount of data to be reviewed presents to the emergency department today with dog bites to the bilateral forearms. On initial evaluation patient is hemodynamically stable, afebrile, bites in the bilateral forearms as described in the physical exam without obvious osseous injury, neurovascularly intact. Differential diagnosis includes but is not limited to dog bite, soft tissue injury, foreign body. Patient has full strength in the hands and forearms without findings of neurovascular injury so I have low suspicion for soft tissue injury to the muscles or tendons. Based on patient's vaccine history she does not require Tdap booster but does require rabies prophylaxis with which she is comfortable. X-rays of the arms were performed to evaluate for possible foreign body such as a broken tooth. X-rays of the forearms were personally interpreted at bedside and do not demonstrate osseous injury or foreign body. See radiology reads for final interpretations. Wounds were extensively cleansed. The elongated, deep wound on the ulnar side o f the palmar aspect of the right forearm was loosely approximated with a single suture due to its significant gaping nature. It was only loosely approximated to allow it to still drain and avoid infection. Patient received Augmentin, rabies IgG infiltration at the wounds, rabies vaccine. Bacitracin applied to the wounds. Patient given verbal and written instructions on follow-up and repeat visits for continued rabies vaccine series. I prescribed Augmentin and bacitracin for outpatient management. She was also given instructions on antibiotic use, wound care, suture removal, follow-up instructions, and strict return precautions for the ER. She indicated understanding and the patient was discharged in stable condition. Procedures Risk/Benefits of Procedure(s) Were Explained: Yes (Consent provided by patient) Laceration Laceration 1: Site: upper extremity (Right forearm palmar aspect ulnar side) Side (If applicable): right Size (cm): 2 Description: linear (Gaping with subcutaneous fat exposed) and contaminated Depth: involves subcutaneous layer Pre-repair: wound explored, irrigated extensively and deep structures intact Skin layer closed with: nylon Size (cm): 4-0 Number of sutures: 1 Technique: simple, interrupted (Single suture was placed in the middle of the gaping wound to loosely approximated to allow it to drain since it is a puncture wound ) Critical Care Critical Care Time Critical Care Time: No
[2024-03-21] MEDS: RABIES VACCINE (PCEC)/PF 2.5 UNIT VIAL IM (00:49)
[2024-03-21] MEDS: RABIES IMMUNE GLOBULIN/PF 300 UNIT/ML VIAL 2540 UNIT IM (00:56)
[2024-03-21 01:19] VITALS: BP 180/98; PULSE 84; RESP 16; TEMP 36.7; O2SAT 98
== END 2024-03-21 01:25 | disposition home or self-care (01) ==
PROVIDERS: Emergency Provider Emergency Medicine
DX: S51.811A Laceration without foreign body of right forearm, initial encounter (principal); S51.831A Puncture wound without foreign body of right forearm, initial encounter; M79.601 Pain in right arm; M79.602 Pain in left arm; F17.210 Nicotine dependence, cigarettes, uncomplicated; Z20.3 Contact with and (suspected) exposure to rabies; W54.0XXA Bitten by dog, initial encounter; Y93.89 Activity, other specified; Z23 Encounter for immunization
CPT/HCPCS: 12001; 73090; 90375; 90675; 96372; 99284

== ENCOUNTER 2024-03-28 12:57 | Emergency (ER) | payer OTHER, SELFPAY ==
[2024-03-28 13:17] VITALS: BP 146/90; PULSE 82; RESP 16; TEMP 36.7; O2SAT 97; BMI 45.1
--- NOTE | 2024-03-28 13:28 | PC.NURSE ---
[facility] AT BEDSIDE
--- NOTE | 2024-03-28 13:39 | ED_ITS ---
<Statement entered by Ngoc Berry MD - 03/28/24 13:52> I was consulted by the KAILA, and we discussed the complexity of problems being addressed. I approved the treatment and management plan for this patient's care in the emergency department, thus performing a substantive portion of the medical decision making. Ngoc Berry MD Discharge Plan Disposition Patient Disposition: Home, Self-Care Condition: Good Chief Complaint: Wound/Laceration Prescriptions Prescriptions: No Action spironolactone 50 mg tablet PO Patient Comments: TAKE 1 TABLET BY MOUTH ONCE DAILY bumetanide 2 mg tablet PO Patient Comments: TAKE 1 TABLET BY MOUTH ONCE DAILY metoprolol succinate 100 mg tablet extended release 24 hr PO BID Patient Comments: TAKE 1 TABLET BY MOUTH 2 TIMES A DAY DO NOT CRUSH OR CHEW Entresto 24-26 mg tablet PO .2 tabs bid Patient Comments: TAKE 1 TABLET BY MOUTH TWICE DAILY dapagliflozin propanediol [Farxiga] 10 mg tablet 10 mg PO DAILY Qty: 90 0RF dapagliflozin propanediol [Farxiga] 10 mg tablet 10 mg PO DAILY Qty: 90 0RF venlafaxine [Effexor XR] 37.5 mg capsule,extended release 24hr 37.5 mg PO DAILY Qty: 30 2RF Ozempic 0.25 mg or 0.5 mg (2 mg/3 mL) pen injector 0.25 mg SQ WEEKLY Qty: 3 0RF Rx Instructions: for 4 weeks amoxicillin-pot clavulanate 875-125 mg tablet 1 tab PO BID Qty: 10 0RF bacitracin zinc 500 unit/gram ointment 1 applic topical BID Qty: 28 0RF Referrals Follow up/Referrals: Kindra Persaud PA [Primary Care Provider] - See instructions Activity Restrictions/Add. Instructions Additional Instructions/Restrictions: Return to the emergency department with any worsening signs or symptoms, any redness swelling or any drainage from the wound, any fevers or chills. Clinical Impressions Clinical Impression: Encounter for removal of sutures, Visit for wound check Instructions Patient Instructions: DI for Wound Infection, How to Care for a Surgical Wound- Stitches Print Language Print Language: Azeri Discharge ED Provider: Ngoc Berry General Adult HPI General Chief complaint: Wound/Laceration Stated complaint: AO-03/20/24 Dog bites on both arms Time Seen by Provider: 01/31/25 13:22 Mode of Arrival: Ambulatory Source of Information: Patient Limitations: No Limitations Description of Symptoms (Recalled from ER Triage Doc. by RN): Patient was seen here last for dog bites to bilateral forearms. Patient states the provider told her to watch for swelling. Patient states her left puncture started swelling two days ago. Denies fever, chills, or N/V. History of Present Illness HPI narrative: 43-year-old female presents to the emergency department for a wound check, patient was seen in the emergency department on 03/21/2024 for a dog bite on bilateral forearms, she has been treated with Augmentin, had rabies IgG infiltration as well as rabies vaccination, she is taken Augmentin as prescribed, has 1 suture in on the right ulnar side of the palmar aspect of the forearm, that was loosely approximated with single suture. She denies any fever chills chest pain shortness of breath nausea vomiting denies any pain erythema wound dehiscence or drainage from the affected areas, she is finished her course of antibiotics, unfortunately, patient was lost in follow-up and did not follow- up with rabies series, was supposed to have another dose on 127, and 131. However, she states that the mental health tech of the dog was contacted and the dog was verified to have rabies vaccination. Other past medical history for the patient to consist of CHF, CKD, hypertension, ICD. Distress vitals grossly unremarkable, no history of substance use. Related Data Home Medications ?Medication ?Instructions ?Recorded ?Confirmed bumetanide 2 mg tablet mg PO 09/10/23 10/16/23 metoprolol succinate 100 mg mg PO BID 09/10/23 10/16/23 tablet,extended release 24 hr sacubitril 24 mg-valsartan 26 mg tab PO .2 tabs bid 09/10/23 10/16/23 tablet (Entresto) spironolactone 50 mg tablet mg PO 09/10/23 10/16/23 Previous Rx's ?Medication ?Instructions ?Recorded Farxiga 10 mg tablet 10 mg PO DAILY #90 tabs 09/10/23 (dapagliflozin propanediol) dapagliflozin propanediol 10 mg 10 mg PO DAILY #90 tabs 09/10/23 tablet (Farxiga) semaglutide 0.25 mg or 0.5 mg (2 0.25 mg (0.368 mL) SQ WEEKLY #3 mL 10/16/23 mg/3 mL) subcutaneous pen injector (Ozempic) venlafaxine 37.5 mg 37.5 mg PO DAILY #30 caps 10/16/23 capsule,extended release 24 hr (Effexor XR) amoxicillin 875 mg-potassium 1 tab PO BID #10 tabs 03/21/24 clavulanate 125 mg tablet bacitracin zinc 500 unit/gram 1 applic topical BID #28 grams 03/21/24 topical ointment Allergies Allergy/AdvReac Type Severity Reaction Status Date / Time latex Allergy Mild Rash Verified 03/28/24 13:22 [facility] Disclaimer: The information contained in this section may have been updated after the patient was seen, as this information can be updated by other users. Medical History (Updated 03/28/24 @ 13:46 by SLOANE Rivera) CHF (congestive heart failure) Cerebral palsy Hypertension ICD (implantable cardioverter-defibrillator) in place Surgical History (Updated 09/10/23 @ 14:18 by Ashley Graham MA) H/O bone graft Hx of cholecystectomy H/O: Family History (Updated 09/10/23 @ 14:12 by Ashley Graham MA) Other Cancer Diabetes Heart attack Hypertension Stroke Social History (Updated 09/10/23 @ 14:11 by Ashley Graham MA) Smoking Status: Current every day smoker tobacco type: cigarettes packs per day: 1 alcohol intake: never substance use type: denies use current occupational status: unemployed and other Travel in the last 8 weeks: None household members: family housing: house marital status: education level: college Have you lived/traveled outside [place] in past 30 days?: No Contact w/someone who lives/traveled outside [place] past 30 days?: No Exposure to someone with infectious disease in past 14 days?: No Do you have a fever (greater than 100.4 F or 38 C)?: No Have you tested positive for COVID-19: No Exposed to someone with COVID-19 in past 14 days?: No Do you have a sore throat?: No Do you have a cough?: No Do you have any weakness?: No Do you have any diarrhea?: No Are you experiencing any unusual bleeding?: No Do you have any muscle aches/pain?: No Do you have any abdominal pain?: No Are you experiencing loss of taste or smell?: No ROS Obtained: Yes All systems reviewed & no additional complaints except as documented Physical Exam General General appearance: alert and in no apparent distress Head Head exam: atraumatic and normocephalic Eye Eye exam: Present PERRL and EOMI ENT ENT exam: Present mucous membranes moist Neck Neck exam: Present normal inspection Chest Chest inspection: Present normal inspection and symmetric chest wall rise Respiratory Respiratory exam: Present normal lung sounds bilaterally; Absent respiratory distress Cardiovascular Cardiovascular exam: Present regular rate and normal rhythm Abdominal Exam Abdominal exam: Present soft; Absent tenderness Extremities Exam Extremities exam: Present normal inspection Neurological Exam Neurological exam: Present alert and oriented X3 Psychiatric Psychiatric exam: Present normal affect Skin Skin exam: Present warm, dry and other (There are 2 areas on the patient's bilateral forearms, the correspond with ongoing dog bites, see medical documentation from 03/21/2024, patient's wounds look to be healing appropriately no signs of erythema wound dehiscence or drainage, there is no pain to palpation to the area, there is what appea) Medical Decision Making Medical Records Medical records reviewed: Yes I reviewed the patient's medical records. Screening: Per USPSTF and CDC recommendations, given the prevalence of disease in our region, it is our hospital?s policy to screen for HIV and viral Hepatitis for all patients aged 18 and over and those with ongoing risk factors. Stevan Inquiry Pt receiving controlled substance: No Stevan was queried for this patient: No Vital Signs: 03/28/24 13:17 Temperature 98.0 F Temperature Source Oral Pulse Rate [Radial] 82 Respiratory Rate 16 Blood Pressure [Right Arm] 146/90 H Blood Pressure Mean [Right Arm] 108 Blood Pressure Source [Right Arm] Automatic Cuff Blood Pressure Position [Right Arm] Sitting 02 Sat by Pulse Oximetry 97 Oxygen Delivery Method Room Air Medical Decision Narrative: 43-year-old female presents the emergency department for a wound check differential diagnose include not limited to, wound infection, wound check, encounter for suture removal, encounter for vaccination series. I discussed patient case with attending physician Patient's wounds look to be healing appropriately, no evidence of any wound dehiscence erythema or ongoing infection no drainage from the wound, suture was removed without incident on the right forearm, patient has a small seroma that is beginning to form on the patient's left, continue symptomatic relief, patient unfortunately has missed her rabies vaccination series, however, she states that she was able to contact the mental health tech of the dog and verify rabies vaccination she does not want to proceed with concurrent rabies vaccinations, all risks of this were discussed with the patient at the bedside patient voiced understanding, shared decision-making was utilized this is appropriate since patient has verified that the animal has documented rabies vaccination. Strict ED return precaution were given to the patient the bedside patient voiced understanding of the current treatment plan/discharge plan will follow-up with PCP and other providers as directed. Critical Care Critical Care Time Critical Care Time: No
[2024-03-28 13:53] VITALS: BP 137/85; PULSE 79; RESP 16; TEMP 36.6; O2SAT 99
== END 2024-03-28 13:58 | disposition home or self-care (01) ==
PROVIDERS: Emergency Provider Student in an Organized Health Care Education/Training Program; PCP Physician Assistant
DX: R22.32 Localized swelling, mass and lump, left upper limb (principal); F17.210 Nicotine dependence, cigarettes, uncomplicated; Z48.02 Encounter for removal of sutures; Z51.89 Encounter for other specified aftercare
CPT/HCPCS: 99282

== ENCOUNTER 2024-07-19 12:42 | Emergency (ER) | payer MEDICARE, SELFPAY ==
[2024-07-19] VITALS (9 sets, daily range): BP systolic 136–175; BP diastolic 98–115; PULSE 61–82; RESP 14–18; TEMP 36.6; O2SAT 97–99; BMI 45.4
--- NOTE | 2024-07-19 12:51 | ED_ITS ---
<Statement entered by Jenny Rodrigues DO - 07/20/24 07:34> I was consulted by the KAILA, and we discussed the complexity of the problems being addressed. I approved the treatment and management plan for this patient's care in the emergency department, thus performing a substantive portion of the medical decision making. Jenny Rodrigues DO Discharge Plan Disposition Patient Disposition: Home, Self-Care Prescriptions Prescriptions: New clindamycin HCl 300 mg capsule 300 mg PO BID 7 Days Qty: 14 0RF ibuprofen 600 mg tablet 600 mg PO TID Qty: 20 0RF No Action spironolactone 50 mg tablet PO Patient Comments: TAKE 1 TABLET BY MOUTH ONCE DAILY bumetanide 2 mg tablet PO Patient Comments: TAKE 1 TABLET BY MOUTH ONCE DAILY metoprolol succinate 100 mg tablet extended release 24 hr PO BID Patient Comments: TAKE 1 TABLET BY MOUTH 2 TIMES A DAY DO NOT CRUSH OR CHEW Entresto 24-26 mg tablet PO .2 tabs bid Patient Comments: TAKE 1 TABLET BY MOUTH TWICE DAILY dapagliflozin propanediol [Farxiga] 10 mg tablet 10 mg PO DAILY Qty: 90 0RF dapagliflozin propanediol [Farxiga] 10 mg tablet 10 mg PO DAILY Qty: 90 0RF venlafaxine [Effexor XR] 37.5 mg capsule,extended release 24hr 37.5 mg PO DAILY Qty: 30 2RF Ozempic 0.25 mg or 0.5 mg (2 mg/3 mL) pen injector 0.25 mg SQ WEEKLY Qty: 3 0RF Rx Instructions: for 4 weeks amoxicillin-pot clavulanate 875-125 mg tablet 1 tab PO BID Qty: 10 0RF bacitracin zinc 500 unit/gram ointment 1 applic topical BID Qty: 28 0RF Referrals Follow up/Referrals: Kindra Persaud PA [Primary Care Provider] - See instructions Activity Restrictions/Add. Instructions Additional Instructions/Restrictions: Today you were evaluated in the emergency department had a CT scan of your face. There is no definite abscess within the soft tissue. Please continue the clindamycin that you are prescribed today. You had IV antibiotics in the ED today, you may start your oral antibiotics tomorrow.please take the ibuprofen as directed. Please follow-up with dentistry. Return to the ED if any worsening of your condition. Clinical Impressions Clinical Impression: Abscess, dental Instructions Patient Instructions: DI for Dental Pain Print Language Print Language: Sammarinese Discharge ED Provider: Jenny Rodrigues General Adult HPI General Chief complaint: Dental/Oral Stated complaint: Abscess Tooth, Left side of face swollen/pain Time Seen by Provider: 07/19/24 12:49 History of Present Illness HPI narrative: patient is a 43-year-old female PMHx HTN, cerebral palsy, CKD, CHF, ICD history of fractured left upper molar. Patient states she recently completed 10 days of Augmentin due to infected fractured tooth, states that her symptoms improved however over the past 3 days have worsened. Related Data Home Medications ?Medication ?Instructions ?Recorded ?Confirmed bumetanide 2 mg tablet mg PO 09/10/23 10/16/23 metoprolol succinate 100 mg mg PO BID 09/10/23 10/16/23 tablet,extended release 24 hr sacubitril 24 mg-valsartan 26 mg tab PO .2 tabs bid 09/10/23 10/16/23 tablet (Entresto) spironolactone 50 mg tablet mg PO 09/10/23 10/16/23 Previous Rx's ?Medication ?Instructions ?Recorded Farxiga 10 mg tablet 10 mg PO DAILY #90 tabs 09/10/23 (dapagliflozin propanediol) dapagliflozin propanediol 10 mg 10 mg PO DAILY #90 tabs 09/10/23 tablet (Farxiga) semaglutide 0.25 mg or 0.5 mg (2 0.25 mg (0.368 mL) SQ WEEKLY #3 mL 10/16/23 mg/3 mL) subcutaneous pen injector (Ozempic) venlafaxine 37.5 mg 37.5 mg PO DAILY #30 caps 10/16/23 capsule,extended release 24 hr (Effexor XR) amoxicillin 875 mg-potassium 1 tab PO BID #10 tabs 03/21/24 clavulanate 125 mg tablet bacitracin zinc 500 unit/gram 1 applic topical BID #28 grams 03/21/24 topical ointment clindamycin HCl 300 mg capsule 300 mg PO BID 7 days #14 caps 07/19/24 ibuprofen 600 mg tablet 600 mg PO TID #20 tabs 07/19/24 Allergies Allergy/AdvReac Type Severity Reaction Status Date / Time latex Allergy Mild Rash Verified 07/19/24 13:01 [facility] Disclaimer: The information contained in this section may have been updated after the patient was seen, as this information can be updated by other users. Medical History (Updated 07/19/24 @ 16:10 by Laine Romero APRN) CHF (congestive heart failure) Cerebral palsy Hypertension ICD (implantable cardioverter-defibrillator) in place Surgical History (Updated 09/10/23 @ 14:18 by Ashley Graham MA) H/O bone graft Hx of cholecystectomy H/O: Family History (Updated 09/10/23 @ 14:12 by Ashley Graham MA) Other Cancer Diabetes Heart attack Hypertension Stroke Social History (Updated 09/10/23 @ 14:11 by Ashley Graham MA) Smoking Status: Current every day smoker tobacco type: cigarettes packs per day: 1 alcohol intake: never substance use type: denies use current occupational status: unemployed and other Travel in the last 8 weeks?: None household members: family housing: house marital status: education level: college Have you lived/traveled outside [place] in past 30 days?: No Contact w/someone who lives/traveled outside [place] past 30 days?: No Exposure to someone with infectious disease in past 14 days?: No Do you have a fever (greater than 100.4 F or 38 C)?: No Have you tested positive for COVID-19?: No Exposed to someone with COVID-19 in past 14 days?: No Do you have a sore throat?: No Do you have a cough?: No Do you have any weakness?: No Do you have any diarrhea?: No Are you experiencing any unusual bleeding?: No Do you have any muscle aches/pain?: No Do you have any abdominal pain?: No Are you experiencing loss of taste or smell?: No ROS Obtained: Yes Systems reviewed as appropriate & no additional complaints except as documented Physical Exam General General appearance: alert and in no apparent distress Head Head exam: atraumatic, normocephalic and other (left sided facial swelling, no definite abscess felt, no warmth ) Eye Eye exam: Present normal appearance and PERRL ENT ENT exam: Present normal exam Neck Neck exam: Present normal inspection Chest Chest inspection: Present normal inspection and symmetric chest wall rise; Absent tenderness Respiratory Respiratory exam: Present normal lung sounds bilaterally Cardiovascular Cardiovascular exam: Present regular rate Abdominal Exam Abdominal exam: Present soft and normal bowel sounds; Absent tenderness Extremities Exam Extremities exam: Present normal inspection and full ROM Back Exam Back exam: Present normal inspection and full ROM Neurological Exam Neurological exam: Present alert and oriented X3 Psychiatric Psychiatric exam: Present normal affect and normal mood Skin Skin exam: Present warm and dry Medical Decision Making Medical Records Screening: Per USPSTF and CDC recommendations, given the prevalence of disease in our region, it is our hospital?s policy to screen for HIV and viral Hepatitis for all patients aged 18 and over and those with ongoing risk factors. Stevan Inquiry Pt receiving controlled substance: No Vital Signs: 07/19/24 12:49 07/19/24 12:53 07/19/24 13:00 Temperature 97.8 F Temperature Source Oral Pulse Rate 82 Pulse Rate [Left] 80 Respiratory Rate 14 Blood Pressure 175/115 H 170/108 H Blood Pressure [Right Arm] 163/99 H Blood Pressure Mean 123 Blood Pressure Mean [Right Arm] 120 Blood Pressure Source [Right Arm] Automatic Cuff Blood Pressure Position [Right Arm] Sitting 02 Sat by Pulse Oximetry 97 97 Oxygen Delivery Method Room Air 07/19/24 14:17 07/19/24 14:30 07/19/24 15:00 Temperature Temperature Source Pulse Rate 79 80 68 Pulse Rate [Left] Respiratory Rate 18 Blood Pressure 136/98 H 147/102 H 147/101 H Blood Pressure [Right Arm] Blood Pressure Mean 115 Blood Pressure Mean [Right Arm] Blood Pressure Source [Right Arm] Blood Pressure Position [Right Arm] 02 Sat by Pulse Oximetry 98 97 99 Oxygen Delivery Method 07/19/24 15:31 Temperature Temperature Source Pulse Rate 61 Pulse Rate [Left] Respiratory Rate 16 Blood Pressure 144/100 H Blood Pressure [Right Arm] Blood Pressure Mean 112 Blood Pressure Mean [Right Arm] Blood Pressure Source [Right Arm] Blood Pressure Position [Right Arm] 02 Sat by Pulse Oximetry 98 Oxygen Delivery Method Lab Data Lab Results 07/19/24 13:11: WBC 11.5 H, RBC 4.97, Hgb 15.0, Hct 43.5, MCV 87.5, MCH 30.2, MCHC 34.5, RDW 13.8, Plt Count 369, MPV 10.6 H, Neut % (Auto) 76.7, Lymph % (Auto) 13.7, [place] % (Auto) 5.3, Eos % (Auto) 3.1, Baso % (Auto) 0.8, Neut # (Auto) 8.8 H, Lymph # (Auto) 1.6, [place] # (Auto) 0.6, Eos # (Auto) 0.4, Baso # (Auto) 0.1, Sodium 137, Potassium 3.7, Chloride 101, Carbon Dioxide 31 H, Anion Gap 8.7, BUN 12, Creatinine 0.90, Estimated Creat Clear 79, Estimated GFR 69, Est GFR ( Amer) 83, Glucose 151 H, Calcium 9.0, Serum HCG, Qual Negative, HCV Ab URSZULA w/Rflx PCR Qn Negative, HIV Ag/Ab Combo Qual Negative 07/19/24 13:11 07/19/24 13:11 Orders (Tests/Meds): ED MEDICATIONS Generic Name Dose Route Start Last Admin Trade Name Freq PRN Reason Stop Dose Admin Sodium Chloride 10 ml 07/19/24 13:04 Sodium Chloride 0.9% 10ml Flush Syringe IV 08/18/24 13:03 NEEDED PRN Maintain IV Site Sodium Chloride 10 ml 07/19/24 14:39 Sodium Chloride 0.9% 10ml Syr (Rad Only) IV 08/18/24 14:38 NEEDED PRN Maintain IV Site Discontinued Medications Generic Name Dose Route Start Last Admin Trade Name Freq PRN Reason Stop Dose Admin Ampicillin Sodium/Sulbactam 100 mls @ 200 mls/hr 07/19/24 13:05 07/19/24 13:16 Sodium 3 gm/ Sodium Chloride IV 07/19/24 13:06 200 mls/hr ONCE ONE Administration Iopamidol 75 ml 07/19/24 14:36 Iopamidol-370 (76%);100ml Bottle IV 07/19/24 14:37 ONCE ONE Iopamidol 75 ml 07/19/24 14:39 Iopamidol-370 (76%);100ml Bottle IV 07/19/24 14:40 ONCE ONE Sodium Chloride 10 ml 07/19/24 14:36 Sodium Chloride 0.9% 10ml Syr (Rad Only) IV 07/19/24 14:37 ONCE ONE ORDERS Category Date Time Status CT facial bones w con Stat Cat Scan 07/19/24 13:04 Completed BMP [Basic Metabolic Panel] Stat Lab 07/19/24 13:11 Completed CBC w/Auto Diff [Complete Blood Count Auto Diff] Stat Lab 07/19/24 13:11 Completed HCG Qualitative, Serum Stat Lab 07/19/24 13:11 Completed HIV Combo Stat Lab 07/19/24 13:11 Completed Hepatitis C Ab Qual. W/ RFX Stat Lab 07/19/24 13:11 Completed Blood Culture Stat Micro 07/19/24 13:13 Received Medical Decision Narrative: In summary, patient is a 43-year-old female PMHx HTN, cerebral palsy, CKD, CHF, ICD history of fractured left upper molar. Patient states she recently completed 10 days of Augmentin due to infected fractured tooth, states that her symptoms improved however over the past 3 days have worsened. Patient states she has pain around tooth site and swelling into the left side of her face. Denies any additional complaints at this time. Denies difficulty swallowing or breathing. Denies fever, chills, body aches, chest pain, shortness of breath. Upon initial evaluation patient is alert, oriented and cooperative. She is hypertensive. Afebrile. Physical exam remarkable for fractured left upper molar, tenderness around molar. Patient has moderate left-sided facial swelling that extends around her left eye, mild tenderness noted. Differential diagnosis includes sepsis, abscess, cellulitis, among others. Discussed with patient that we will proceed with hematologic labs, including blood cultures, imaging and begin Unasyn. CBC remarkable for WBC 11.5, stable H&H. CMP unremarkable for any actionable abnormalities. hCG negative. CT of the face remarkable for dental carry and periapical lucency within the left maxillary molar adjacent soft tissue edema without definite soft tissue abscess. Upon reassessment, patient's facial swelling has improved. Given this, I feel the patient is safe to be discharged home at this time. Advised her that we will start her on clindamycin and ibuprofen. Advised her to eat before she takes ibuprofen. She is already scheduled for dentistry follow-up however advised her if her condition worsens before then to return to the ED. she verbalized understanding and was hemodynamically stable and ambulatory upon discharge Critical Care Critical Care Time Critical Care Time: No
--- NOTE | 2024-07-19 13:04 | CT_ITS ---
PROCEDURE INFORMATION: Exam: CT Maxillofacial With Contrast Exam date and time: 07/19/2024 2:39 PM Age: 43 years old Clinical indication: Other: Left sided facial abscess TECHNIQUE: Imaging protocol: Computed tomography of the face with contrast. Radiation optimization: All CT scans at this facility use at least one of these dose optimization techniques: automated exposure control; mA and/or kV adjustment per patient size (includes targeted exams where dose is matched to clinical indication); or iterative reconstruction. Contrast material: ISOVUE; Contrast volume: 75 ml; Contrast route: IV; COMPARISON: No relevant prior studies available. FINDINGS: Paranasal sinuses: No air-fluid levels. Orbital cavities: Orbits are normal. Globes are unremarkable. Teeth: Dental humera and periapical lucency within a left maxillary molar. Adjacent soft tissue edema without definite soft tissue abscess. Bones: No acute fracture. Soft tissues: See Teeth finding. IMPRESSION: Dental humera and periapical lucency within a left maxillary molar. Adjacent soft tissue edema without definite soft tissue abscess.
[2024-07-19] MEDS: AMPICILLIN SODIUM/SULBACTAM 3 GM in 0.9 % SODIUM CHLORIDE 100 ML IV (13:16)
[2024-07-19 13:41] LABS: Basophils # 0.1 K/mm3 (0-0.2); Basophils % 0.8 % (0.1-2.0); Eosinophils # 0.4 Kmm3 (0.0-0.4); Eosinophils % 3.1 % (0.1-12.0); Hematocrit 43.5 % (37.0-47.0); Immature Granulocytes # 0.05 10^3uL; Immature Granulocytes % 0.4 %; Lymphocytes # 1.6 K/mm3 (0.7-4.5); Lymphocytes % 13.7 % (10-50); Mean Corpuscular HGB Conc 34.5 g/dL (31.8-35.4); Mean Corpuscular Hemoglobin 30.2 pg (27.0-31.2); Mean Corpuscular Volume 87.5 fl (81-99); Mean Platelet Volume 10.6 fl (7.4-10.4); Monocytes # 0.6 K/mm3 (0.1-1.0); Monocytes % 5.3 % (1.7-9.3); Neutrophils # 8.8 K/mm3 (1.8-7.8); Neutrophils % 76.7 % (37.0-80.0); Nucleated Red Blood Cells # 0 10^3/uL; Nucleated Red Blood Cells % 0 %; Platelet Count 369 K/mm3 (142-424); Red Blood Count 4.97 M/mm3 (4.20-5.40); Red Cell Distribution Width 13.8 % (11.5-17.5); Red Cell Distribution Width-SD 44.1 fL; White Blood Count 11.5 K/mm3 (4.8-10.8)
[2024-07-19 13:59] LABS: Chloride 101 mmol/L (98-107); Sodium 137 mmol/L (136-145)
[2024-07-19 14:00] LABS: Potassium 3.7 mmoL/L (3.5-5.1)
[2024-07-19 14:02] LABS: Blood Urea Nitrogen 12 mg/dl (7-17); Creatinine Clearance Estimated 79 mL/min (50-200); Estimated Glomerular Filt Rate 69 ml/min (>60); GFR (African American) 83 ML/MIN (>60)
[2024-07-19 14:03] LABS: Anion Gap 8.7 mEq/L (5-15); Carbon Dioxide 31 mmol/L (22.0-30.0); Glucose 151 mg/dl (74-100)
[2024-07-19 15:00] LABS: HCG Qualitative, Serum Negative (Negative)
[2024-07-19 15:23] LABS: Hepatitis C Ab Qual. W/ RFX NEGATIVE (Negative)
[2024-07-19 15:45] LABS: HIV Combo NEGATIVE (Negative)
== END 2024-07-19 16:17 | disposition home or self-care (01) ==
PROVIDERS: Nurse Practitioner; Emergency Provider Emergency Medicine; PCP Physician Assistant
DX: R22.0 Localized swelling, mass and lump, head (principal); K04.7 Periapical abscess without sinus; F17.210 Nicotine dependence, cigarettes, uncomplicated; Z11.59 Encounter for screening for other viral diseases; Z11.4 Encounter for screening for human immunodeficiency virus [HIV]
CPT/HCPCS: 70487; 80048; 84703; 85025; 86803; 87389; 96374; 99284; J0295